=== PATIENT | male | born 1945 | race Caucasian/White ===

== ENCOUNTER 2017-07-29 06:00 | Day surgery (SDC) | payer MEDICARE ==
[2017-07-25 15:47] LABS: CREATININE 1.3 mg/dL (0.5-1.5); HEMATOCRIT 39.2 % (42-54); MEAN CORPUSCULAR HEMOGLOBIN 28.8 pg (27.0-33.0); MEAN CORPUSCULAR VOLUME 87.1 fL (79-99); NUCLEATED RED BLOOD CELLS 0.4 % (0.0-0.19); PLATELET COUNT (AUTO) 186 K/uL (130-400); POTASSIUM 4.1 mmol/L (3.5-5.1); RED BLOOD CELL COUNT(AUTO) 4.51 MIL/uL (4.50-6.20); RED CELL DISTRIBUTION WIDTH 14.7 % (11.0-15.5); WHITE BLOOD COUNT (AUTO) 16.4 K/uL (4.8-10.8)
[2017-07-25 15:49] VITALS: BP 160/83
[2017-07-25 16:33] LABS: BASOPHILS % (MANUAL) 1 % (0-2); EOSINOPHILS % (MANUAL) 5 % (1-6); LYMPHOCYTES % (MANUAL) 55 % (22-44); MAN.DIFF COMMENT-IMPRESSION MANUAL DIFFERENTIAL; MONOCYTES % (MANUAL) 3 % (2-9); REACTIVE LYMPHOCYTES 22 % (0-0); SEGMENTED NEUTROPHILS % 14 % (40-70)
[2017-07-29] VITALS (14 sets, daily range): BP systolic 111–153; BP diastolic 67–89
[~2017-07-29] VITALS: Ht 177.8 cm; Wt 93.3 kg
[~2017-07-29 06:00] MED LIST: METO50TA18 PO; SULF500T8 PO
[2017-07-29] MEDS ORDERED: LACTATED RINGERS 1000ML 1,000 ML IV ONE (06:18)
[2017-07-29] MEDS ORDERED: CEFAZOLIN 2GM / 50 ML 50 ML IV ONE (06:19)
[2017-07-29] MEDS ORDERED: LIDOCAINE PF 2% 5ML ABBOJECT ONE (06:51)
[2017-07-29] MEDS ORDERED: NEOSTIGMINE METHYLSULFATE 1MG/ML IV ONE (06:51)
[2017-07-29] MEDS ORDERED: FENTANYL CITRATE PF 50 MCG/1 ML 2ML VIAL ONE (06:51)
[2017-07-29] MEDS ORDERED: PROPOFOL 10 MG/ML 20ML VIAL IV ONE (06:51)
[2017-07-29] MEDS ORDERED: ONDANSETRON HCL 4 MG/2 ML VIAL ONE (06:51)
[2017-07-29] MEDS ORDERED: SUCCINYLCHOLINE 200MG/10ML SYR ONE (06:51)
[2017-07-29] MEDS ORDERED: MIDAZOLAM HCL 1 MG/ML 2ML VIAL ONE (06:51)
[2017-07-29] MEDS ORDERED: DEXAMETHASONE SOD PHOSPHATE 10MG/ML 1ML VIAL ONE (06:51)
[2017-07-29] MEDS ORDERED: GLYCOPYRROLATE 0.2 MG/ML 5 ML VIAL ONE (06:51)
[2017-07-29] MEDS ORDERED: BUPIVACAINE/PF 0.5% 30ML VIAL ONE (07:16)
[2017-07-29] MEDS ORDERED: LIDOCAINE HCL 1% 20 ML VIAL ONE (07:16)
[2017-07-29] MEDS ORDERED: OCTYL 2-CYANOACRYLATE 1 EACH TP ONE (07:17)
[2017-07-29] MEDS ORDERED: HEPARIN SODIUM 1000UNIT/ML 10ML VIAL ONE (07:17)
[2017-07-29] MEDS ORDERED: BACITRACIN 50,000 UNIT VIAL ONE (07:18)
[2017-07-29] MEDS ORDERED: TYL3 PO (09:26)
== END 2017-07-29 10:15 | disposition home or self-care (01) ==
LOC: DAH 06:00
PROVIDERS: ATTEND Surgery
DX: Z45.2 Encounter for adjustment and management of vascular access device (principal); C18.9 Malignant neoplasm of colon, unspecified; C18.0 Malignant neoplasm of cecum; I10 Essential (primary) hypertension; M19.90 Unspecified osteoarthritis, unspecified site; Z98.890 Other specified postprocedural states; Z90.49 Acquired absence of other specified parts of digestive tract; Z79.899 Other long term (current) drug therapy
CPT/HCPCS: 36415; 36561; 71010; 77001; 80048; 85025; 93005; C1788; J0330; J0690; J1100; J1644; J2001; J2250; J2405; J2704; J2710; J3010; J3490 ×2; J7120; 77002

== ENCOUNTER 2019-01-13 13:40 | Outpatient (CLI) | payer MEDICARE ==
[~2019-01-13 13:40] MED LIST changes: +TYL3 PO
[2019-01-13 17:33] VITALS: BP 164/104
== END 2019-02-16 15:35 ==
LOC: WHH 13:40
PROVIDERS: ATTEND Family Medicine
DX: S01.401A Unspecified open wound of right cheek and temporomandibular area, initial encounter (principal); I10 Essential (primary) hypertension; K29.70 Gastritis, unspecified, without bleeding; K63.89 Other specified diseases of intestine; K26.9 Duodenal ulcer, unspecified as acute or chronic, without hemorrhage or perforation; K57.90 Diverticulosis of intestine, part unspecified, without perforation or abscess without bleeding; K21.9 Gastro-esophageal reflux disease without esophagitis; E66.9 Obesity, unspecified; E78.5 Hyperlipidemia, unspecified; M45.9 Ankylosing spondylitis of unspecified sites in spine; N20.0 Calculus of kidney; N28.1 Cyst of kidney, acquired; M10.9 Gout, unspecified; M19.90 Unspecified osteoarthritis, unspecified site; Z85.828 Personal history of other malignant neoplasm of skin; Z85.038 Personal history of other malignant neoplasm of large intestine; Z79.899 Other long term (current) drug therapy; Z90.49 Acquired absence of other specified parts of digestive tract; Z85.89 Personal history of malignant neoplasm of other organs and systems; X58.XXXA Exposure to other specified factors, initial encounter; Y93.89 Activity, other specified; Y92.89 Other specified places as the place of occurrence of the external cause; Y99.8 Other external cause status
CPT/HCPCS: G0463

== ENCOUNTER 2019-02-24 07:49 | Day surgery (SDC) | payer MEDICARE ==
[2019-02-24] VITALS (8 sets, daily range): BP systolic 94–152; BP diastolic 51–80
[~2019-02-24] VITALS: Ht 177.8 cm; Wt 90.7 kg
[~2019-02-24 07:49] MED LIST changes: +SODIUM CHLORIDE 0.9% 1000ML 1,000 ML IV ONE
[2019-02-24] MEDS ORDERED: PROPOFOL 10 MG/ML 20ML VIAL IV ONE ×2 (09:44)
== END 2019-02-24 11:05 | disposition home or self-care (01) ==
LOC: DAH 07:49 → ENDO 07:49
PROVIDERS: ATTEND Internal Medicine
DX: Z08 Encounter for follow-up examination after completed treatment for malignant neoplasm (principal); D12.2 Benign neoplasm of ascending colon; K22.2 Esophageal obstruction; K21.0 Gastro-esophageal reflux disease with esophagitis; Z98.0 Intestinal bypass and anastomosis status; K29.50 Unspecified chronic gastritis without bleeding; Z85.038 Personal history of other malignant neoplasm of large intestine; I10 Essential (primary) hypertension; Z98.890 Other specified postprocedural states; Z79.899 Other long term (current) drug therapy; Z68.30 Body mass index [BMI] 30.0-30.9, adult; K63.5 Polyp of colon
CPT/HCPCS: 43239; 43249; 45380; 88305; 88342; A4606; J2704 ×2; J7030

== ENCOUNTER 2019-06-10 08:13 | Day surgery (SDC) | payer MEDICARE ==
[2019-06-10] VITALS (7 sets, daily range): BP systolic 110–151; BP diastolic 64–88
[~2019-06-10] VITALS: Ht 177.8 cm; Wt 94.3 kg
[2019-06-10] MEDS ORDERED: PROPOFOL 10 MG/ML 20ML VIAL IV ONE (11:13)
== END 2019-06-10 12:05 | disposition home or self-care (01) ==
LOC: DAH 08:13 → ENDO 08:13
PROVIDERS: ATTEND Internal Medicine Gastroenterology
DX: K21.9 Gastro-esophageal reflux disease without esophagitis (principal); K44.9 Diaphragmatic hernia without obstruction or gangrene; K29.50 Unspecified chronic gastritis without bleeding; K22.8 Other specified diseases of esophagus; I10 Essential (primary) hypertension; R13.10 Dysphagia, unspecified; Z98.890 Other specified postprocedural states; Z79.899 Other long term (current) drug therapy; Z85.038 Personal history of other malignant neoplasm of large intestine; Z90.49 Acquired absence of other specified parts of digestive tract; Z72.89 Other problems related to lifestyle; Z86.010 Personal history of colon polyps; Z85.828 Personal history of other malignant neoplasm of skin
CPT/HCPCS: 43239; 88305; A4215; A4221; A4222; A4223; A4606; A4663; J2704; J7030

== ENCOUNTER 2021-08-15 12:57 | Inpatient (IN) | payer MEDICARE ==
[~2021-08-15] VITALS: Ht 177.8 cm; Wt 93.5 kg
[~2021-08-15 12:57] MED LIST changes: -SODIUM CHLORIDE 0.9% 1000ML 1,000 ML IV ONE
[2021-08-15 13:18] LABS: APPEARANCE,URINE Clear (CLEAR); BILIRUBIN,URINE Negative (NEGATIVE); COLOR,URINE Yellow (YELLOW); GLUCOSE, URINE (UA) Negative (NEGATIVE); KETONES,URINE Negative (NEGATIVE); LEUKOCYTE ESTERASE ,URINE Negative (NEGATIVE); NITRATE,URINE Negative (NEGATIVE); OCCULT BLOOD,URINE Negative (NEGATIVE); PH,URINE 7.5 (5.0-8.0); PROTEIN,URINE Negative (NEGATIVE); UROBILINOGEN,URINE 0.2 mg/dL (0.2-1.0)
[2021-08-15 13:26] LABS: AMPHET/METH SCREEN,URINE NEGATIVE (NEGATIVE); BARBITURATE SCREEN, URINE NEGATIVE (NEGATIVE); BENZODIAZEPINES SCREEN,URINE NEGATIVE (NEGATIVE); CANNABINOID SCREEN,URINE NEGATIVE (NEGATIVE); COCAINE SCREEN,URINE NEGATIVE (NEGATIVE); OPIATE SCREEN,URINE NEGATIVE (NEGATIVE); PHENCYCLIDINE SCREEN,URINE NEGATIVE (NEGATIVE)
[2021-08-15 13:52] LABS: BASOPHILS % (AUTO) 0.4 % (0.0-5.0); EOSINOPHILS % (AUTO) 1.3 % (0.0-8.0); HEMATOCRIT 43.4 % (42-54); LYMPHOCYTES % (AUTO) 84.6 % (21.0-51.0); MEAN CORPUSCULAR HEMOGLOBIN 30.6 pg (27.0-33.0); MEAN CORPUSCULAR HGB CONC 33.2 g/dL (32.0-36.0); MEAN CORPUSCULAR VOLUME 92.1 fL (79-99); MONOCYTES % (AUTO) 4.8 % (3.0-13.0); NEUTROPHILS % (AUTO) 8.6 % (40.0-77.0); PLATELET COUNT (AUTO) 144 K/uL (130-400); RED BLOOD CELL COUNT(AUTO) 4.71 MIL/uL (4.50-6.20); RED CELL DISTRIBUTION WIDTH 13.9 % (11.0-15.5)
[2021-08-15 14:05] LABS: CREATININE 1.3 mg/dL (0.5-1.5); POTASSIUM 3.9 mmol/L (3.5-5.1)
[2021-08-15 14:07] LABS: WHITE BLOOD COUNT (AUTO) 54.2 K/uL (4.8-10.8)
[2021-08-15 14:10] LABS: ALBUMIN 3.7 g/dL (3.5-5.0); BILIRUBIN,TOTAL 0.6 mg/dL (0.2-1.0); TOTAL PROTEIN, SERUM 7.4 g/dL (6.0-8.3)
[2021-08-15 14:48] LABS: BLASTS, MANUAL % 2 (0-0); LYMPHOCYTES % (MANUAL) 78 % (22-44); MAN.DIFF COMMENT-IMPRESSION MANUAL DIFFERENTIAL; MONOCYTES % (MANUAL) 1 % (2-9); REACTIVE LYMPHOCYTES 5 % (0-0); SEGMENTED NEUTROPHILS % 14 % (40-70)
[2021-08-15] MEDS ORDERED: GADOTERATE MEGLUMINE 10 MMOL/20 ML VIAL IV ONE (15:04)
[2021-08-15] MEDS ORDERED: ASPIRIN 325MG TAB PO ONE (16:30)
[2021-08-15] MEDS ORDERED: ACETAMINOPHEN 325 MG TAB PO PRN ×2 (17:30)
[2021-08-15] MEDS ORDERED: ONDANSETRON 4MG INJ IV PRN (17:30)
[2021-08-15] MEDS: FAMOTIDINE 20MG VIAL IV SCH (21:18)
[2021-08-15] MEDS: ATORVASTATIN 40 MG TABLET PO SCH (21:18)
[2021-08-15] MEDS: METOPROLOL TARTRATE 25 MG TAB PO SCH (21:19)
[2021-08-16] MEDS ORDERED: ASPIRIN 81MG CHEW TAB ONE (07:26)
[2021-08-16] MEDS ORDERED: CLOPIDOGREL 75MG TAB ONE (07:26)
[2021-08-16] MEDS: FAMOTIDINE 20MG VIAL IV SCH (07:38)
[2021-08-16] MEDS: ASPIRIN 81MG CHEW TAB PO SCH (07:38)
[2021-08-16] MEDS: CLOPIDOGREL 75MG TAB PO SCH (07:38)
[2021-08-16] MEDS: METOPROLOL TARTRATE 25 MG TAB PO SCH ×2 (07:38→20:25)
[2021-08-16 09:00] VITALS: BP 168/99
[2021-08-16 11:32] VITALS: BP 150/67
[2021-08-16 16:01] VITALS: BP 168/97
[2021-08-16] MEDS: HYDRALAZINE 20MG/ML VIAL IV PRN (16:42)
[2021-08-16 20:14] VITALS: BP 135/84
[2021-08-16] MEDS: ATORVASTATIN 40 MG TABLET PO SCH (20:25)
[2021-08-16 23:24] VITALS: BP 159/88
[2021-08-17 04:09] VITALS: BP 163/88
[2021-08-17 04:22] LABS: HEMATOCRIT 41.5 % (42-54); MEAN CORPUSCULAR HEMOGLOBIN 30.3 pg (27.0-33.0); MEAN CORPUSCULAR HGB CONC 33.5 g/dL (32.0-36.0); MEAN CORPUSCULAR VOLUME 90.6 fL (79-99); PLATELET COUNT (AUTO) 149 K/uL (130-400); RED BLOOD CELL COUNT(AUTO) 4.58 MIL/uL (4.50-6.20)
[2021-08-17 04:27] LABS: CREATININE 1.4 mg/dL (0.5-1.5); POTASSIUM 3.7 mmol/L (3.5-5.1)
[2021-08-17 04:28] LABS: WHITE BLOOD COUNT (AUTO) 59.7 K/uL (4.8-10.8)
[2021-08-17 05:11] LABS: BASOPHILS % (MANUAL) 1 % (0-2); EOSINOPHILS % (MANUAL) 2 % (1-6); LYMPHOCYTES % (MANUAL) 86 % (22-44); MONOCYTES % (MANUAL) 1 % (2-9); SEGMENTED NEUTROPHILS % 10 % (40-70)
[2021-08-17 05:12] LABS: MAN.DIFF COMMENT-IMPRESSION MANUAL DIFFERENTIAL; PLATELET MORPHOLOGY COMMENT ADEQUATE
[2021-08-17] MEDS: ASPIRIN 81MG CHEW TAB PO SCH (08:05)
[2021-08-17] MEDS: METOPROLOL TARTRATE 25 MG TAB PO SCH ×2 (08:05→20:35)
[2021-08-17 08:06] VITALS: BP 168/88
[2021-08-17] MEDS: CLOPIDOGREL 75MG TAB PO SCH (08:06)
[2021-08-17 09:27] LABS: CHOLESTEROL 150 mg/dL (<200); HDL CHOLESTEROL 33 mg/dL (29-71); LDL DIRECT 96 mg/dL (0-99); TRIGLYCERIDES 94 mg/dL (30-200)
[2021-08-17] MEDS: FAMOTIDINE 20MG TAB PO SCH (10:29)
[2021-08-17 12:05] VITALS: BP 152/86
[2021-08-17 16:20] VITALS: BP 176/98
[2021-08-17] MEDS: HYDRALAZINE 20MG/ML VIAL IV PRN (17:53)
[2021-08-17 20:00] VITALS: BP 156/93
[2021-08-17] MEDS: ATORVASTATIN 40 MG TABLET PO SCH (20:34)
[2021-08-17] MEDS ORDERED: LISINOPRIL 10 MG TABLET PO SCH (21:00)
[2021-08-17 23:40] VITALS: BP 145/72
[2021-08-18 00:04] VITALS: BP 145/72
[2021-08-18 04:27] VITALS: BP 153/78
[2021-08-18 06:07] LABS: CHOLESTEROL 138 mg/dL (<200); HDL CHOLESTEROL 32 mg/dL (29-71); LDL DIRECT 88 mg/dL (0-99); TRIGLYCERIDES 89 mg/dL (30-200)
[2021-08-18 06:12] LABS: HEMOGLOBIN A1C 5.3 % (4.0-6.0)
[2021-08-18 08:20] VITALS: BP 140/89
[2021-08-18] MEDS ORDERED: LISINOPRIL 10 MG TABLET PO SCH (09:00)
[2021-08-18] MEDS: METOPROLOL TARTRATE 25 MG TAB PO SCH (09:03)
[2021-08-18] MEDS: ASPIRIN 81MG CHEW TAB PO SCH (09:03)
[2021-08-18] MEDS: FAMOTIDINE 20MG TAB PO SCH (09:03)
[2021-08-18] MEDS: CLOPIDOGREL 75MG TAB PO SCH (09:03)
[2021-08-18 12:00] VITALS: BP 129/75
[2021-08-18 16:59] VITALS: BP 152/85
[2021-08-18] MEDS ORDERED: HYDROCHLOROTHIAZIDE 25 MG TABLET PO ONE (18:30)
[2021-08-18 20:24] VITALS: BP 137/81
[2021-08-19] MEDS ORDERED: LISINOPRIL 10 MG TABLET PO SCH (09:00)
[2021-08-19] MEDS ORDERED: HYDROCHLOROTHIAZIDE 25 MG TABLET PO SCH (09:00)
== END 2021-08-18 20:40 | DRG 66 ==
LOC: EDH 12:57 → EDHIP 17:05 → 4DH 08-16 09:15
PROVIDERS: ADMIT Hospitalist; ATTEND Hospitalist
DX: I63.9 Cerebral infarction, unspecified (principal); D72.829 Elevated white blood cell count, unspecified; I10 Essential (primary) hypertension; R29.702 NIHSS score 2; Z20.822 Contact with and (suspected) exposure to COVID-19; T45.1X5A Adverse effect of antineoplastic and immunosuppressive drugs, initial encounter; Y92.89 Other specified places as the place of occurrence of the external cause; Z92.21 Personal history of antineoplastic chemotherapy; Z85.09 Personal history of malignant neoplasm of other digestive organs; Z82.49 Family history of ischemic heart disease and other diseases of the circulatory system; Z82.5 Family history of asthma and other chronic lower respiratory diseases; Z83.3 Family history of diabetes mellitus; Z82.3 Family history of stroke; Z82.0 Family history of epilepsy and other diseases of the nervous system
CPT/HCPCS: 36415; 70450; 70553; 80048; 80053; 80061; 80305; 81003; 83036; 84484; 85025; 85027; 87635; 92522; 92610; 93005; 93356; 93880; 96374; 97039; 99291; C8929; G0378; J0360; J3490

== ENCOUNTER → 2023-03-02 | Outpatient (CLI) | payer MEDICARE | END | disposition home or self-care (01) | LOC: SHCH 10:43 | PROVIDERS: ATTEND Internal Medicine Cardiovascular Disease | DX: I87.2 Venous insufficiency (chronic) (peripheral) (principal); R60.0 Localized edema | CPT/HCPCS: 93970 ==

== ENCOUNTER → 2023-05-01 | Outpatient (CLI) | payer MEDICARE ==
[2023-05-01 15:47] LABS: ALBUMIN 3.1 g/dL (3.5-5.0); BILIRUBIN,TOTAL 0.4 mg/dL (0.2-1.0); CREATININE 1.6 mg/dL (0.5-1.5); MAGNESIUM 1.9 mg/dL (1.80-2.40); POTASSIUM 4.7 mmol/L (3.5-5.1); TOTAL PROTEIN, SERUM 7.1 g/dL (6.0-8.3)
== END | disposition home or self-care (01) ==
LOC: LAB 12:49
PROVIDERS: ATTEND Internal Medicine Cardiovascular Disease
DX: I47.1 Supraventricular tachycardia (principal); I47.20 Ventricular tachycardia, unspecified; I10 Essential (primary) hypertension; Z95.0 Presence of cardiac pacemaker; Z79.899 Other long term (current) drug therapy
CPT/HCPCS: 36415; 80053; 83735; 84484

== ENCOUNTER → 2023-05-10 | Outpatient (CLI) | payer MEDICARE ==
[~2023-05-10] MED LIST changes: +REGADENOSON 0.4 MG/5 ML PF SYG IVP ONE
== END | disposition home or self-care (01) ==
LOC: SHCH 08:54
PROVIDERS: ATTEND Internal Medicine Cardiovascular Disease
DX: I11.9 Hypertensive heart disease without heart failure (principal); I44.1 Atrioventricular block, second degree; I47.20 Ventricular tachycardia, unspecified; I47.1 Supraventricular tachycardia; I25.9 Chronic ischemic heart disease, unspecified; E78.5 Hyperlipidemia, unspecified; Z95.0 Presence of cardiac pacemaker; Z79.899 Other long term (current) drug therapy
CPT/HCPCS: 78452; 96374; 93017; J2785; A9500 ×2

== ENCOUNTER 2023-08-13 16:03 | Emergency (ER) | payer MEDICARE ==
[~2023-08-13] VITALS: Ht 177.8 cm; Wt 77.1 kg
[~2023-08-13 16:03] MED LIST changes: +ACET325C6 PO; +ASPI-1197 PO; +ATOR40TA69 PO; +CLOP75TA32 PO; +DONE5TAB33 PO; +DRON400T7 PO; +FURO40TA5 PO; +LISI10TA24 PO; +MELA3CAP2 PO; +METO25 PO; -METO50TA18 PO; -REGADENOSON 0.4 MG/5 ML PF SYG IVP ONE; -SULF500T8 PO; +TAMS-1 PO; -TYL3 PO
[2023-08-13] MEDS ORDERED: ACETAMINOPHEN 500 MG TABLET PO ONE (18:30)
[2023-08-13 21:16] VITALS: BP 151/86; PULSE 70; RESP 16; O2SAT 99
== END 2023-08-13 21:22 | disposition home or self-care (01) ==
LOC: EDH 16:03
DX: S00.93XA Contusion of unspecified part of head, initial encounter (principal); S20.212A Contusion of left front wall of thorax, initial encounter; S50.02XA Contusion of left elbow, initial encounter; I10 Essential (primary) hypertension; Z95.1 Presence of aortocoronary bypass graft; Z79.899 Other long term (current) drug therapy; W01.0XXA Fall on same level from slipping, tripping and stumbling without subsequent striking against object, initial encounter; Y93.01 Activity, walking, marching and hiking; Y92.89 Other specified places as the place of occurrence of the external cause; Y99.8 Other external cause status
CPT/HCPCS: 29105; 70450; 71100; 73060; 73080

== ENCOUNTER → 2023-10-29 | Outpatient (CLI) | payer MEDICARE | END | disposition home or self-care (01) | LOC: SHCH 10:32 | PROVIDERS: ATTEND Internal Medicine Cardiovascular Disease | DX: I11.9 Hypertensive heart disease without heart failure (principal); E78.5 Hyperlipidemia, unspecified; I25.5 Ischemic cardiomyopathy | CPT/HCPCS: 93306 ==

== ENCOUNTER 2024-09-01 11:31 | Emergency (ER) | payer MEDICARE ==
[~2024-09-01] VITALS: Ht 177.8 cm; Wt 80.7 kg
[~2024-09-01 11:31] MED LIST changes: +ACEB200C18 PO; -ACET325C6 PO; +ALLO100T PO; +AMLO2.5T4 PO; -ATOR40TA69 PO; -CLOP75TA32 PO; -DRON400T7 PO; +FAMO20TA8 PO; +FINA5TAB41 PO; -LISI10TA24 PO; -MELA3CAP2 PO; +MELA5CAP PO; -METO25 PO; +METO25TA6 PO; +MIRT-22 PO; +SULF500T PO; -TAMS-1 PO
--- NOTE | 2024-09-01 12:19 | ERN ---
ED Note History of Present Illness Stated Complaint: FALL Chief Complaint: Mechanical Fall Time Seen by MD: 12:00 Dictation: 79-year-old male presents to the ED via EMS for evaluation post mechanical fall onset 0900. EMS reports patient is nonambulatory at baseline, but was found on the floor by skilled nursing staff. As per EMS patient is on any blood thinners, they deny LOC, vomiting or any other associated symptoms at this time. Allergies: Coded Allergies: No Known Drug Allergies (Unverified Allergy, Unknown, 04/07/14) Home Meds Reported Medications Famotidine (Famotidine) 20 Mg Tablet, 1 TAB PO BID for 30 Days, #60 TAB 0 Refills 07/11/24 Donepezil HCl (Donepezil HCl) 5 Mg Tablet, 1 TAB PO HS for 30 Days, #30 TAB 0 Refills 07/11/24 Sulfasalazine (Azulfidine) 500 Mg Tablet, 500 MG PO BID, TAB 07/11/24 Melatonin (Melatonin) 5 Mg Capsule, 1 CAP PO HS for sleep for 30 Days, #30 CAP 0 Refills 07/11/24 Amlodipine Besylate (Amlodipine Besylate) 2.5 Mg Tablet, 1 TAB PO DAILY for 30 Days, #30 TAB 0 Refills 07/11/24 Metoprolol Tartrate (Metoprolol Tartrate) 25 Mg Tablet, 12.5 MG PO DAILY, TAB 07/11/24 Allopurinol (Allopurinol) 100 Mg Tablet, 200 MG PO DAILY, TAB 07/11/24 Finasteride (Finasteride) 5 Mg Tablet, 1 TAB PO DAILY for 30 Days, #30 TAB 0 Refills 07/11/24 Acebutolol HCl (Acebutolol HCl) 200 Mg Capsule, 1 CAP PO DAILY for 30 Days, #30 CAP 0 Refills 07/11/24 Mirtazapine (Mirtazapine) 15 Mg Tablet, 1 TAB PO HS for 30 Days, #30 TAB 0 Refills 07/11/24 Furosemide (Furosemide) 40 Mg Tablet, 1 TAB PO DAILY for 30 Days, #30 TAB 0 Refills 07/11/24 Aspirin (Aspirin) 81 Mg Tab.chew, 81 MG PO AM, TAB.CHEW 05/23/23 Past Medical History Past Medical History: Dementia, High Cholesterol, Hypertension, Other Additional Past Medical Hx: GOUT, PARKINSONS Surgical History: Pacer/AICD Review of System Dictation Constitutional: Positive for fall, head injury Negative for fever,chills, and weight loss Eyes: Negative for injury, pain,redness, and discharge ENT: Negative for injury,pain or swelling Cardiovascular: Negative for chest pain, palpitations, and edema Respiratory: Negative for shortness of breath, cough, and wheezing, Abdomen/GI: Negative for abdominal pain, nausea, vomiting, diarrhea, and constipation Back: Negative for injury and pain : Negative for injury, bleeding and discharge MS/Extremity: Negative for injury and deformity Skin: Negative for rash, and discoloration Initial Vital Sign VS Vital Signs Date Time Temp Pulse Resp B/P (MAP) Pulse Ox O2 Delivery O2 Flow Rate FiO2 09/01/24 12:01 78 18 154/91 97 Room Air 0 09/01/24 13:23 21 Physical Exam Dictation General: awake, alert, NAD Head/Face: Normocephalic, hematoma to back of head Eyes: PERRL, EOMI, vision at baseline ENT: oral cavity clear, TMs clear, no signs of infection Neck: Trachea midline, supple, no nuchal rigidity Cardiovascular: RRR, normal S1/S2, No MRGs, no JVD Respiratory: CTAB, no respiratory distress, No rales or wheezes Abdomen: Soft, non-tender, non-distended, normal bowel sounds, no guarding or rebound. Skin: Warm, dry, normal turgor, no rash MS/Extremity: Pulses equal, no cyanosis, neurovascular intact, FROM Results (Laboratory/Radiology) X-RAY Comment: REASON: fall ORDERING PHYSICIAN: SAMANTHA KINCAID MD PROCEDURE: PELVIS - PELVIS 1-2VWS PELVIS 1-2VWS HISTORY: Status post fall COMPARISON: None TECHNIQUE: Frontal projection of the pelvis was obtained. FINDINGS: There is no acute displaced fracture or dislocation. Bilateral hip joint space narrowing are seen. Degenerative changes are seen. IMPRESSION: 1. Findings as described above. DICTATED BY: ELROY LO MD DATE: 09/01/24 1459 REASON: fall ORDERING PHYSICIAN: SAMANTHA KINCAID MD PROCEDURE: CXR1VW - CHEST 1VW CHEST 1VW HISTORY: Status post fall COMPARISON: 07/11/2024 FINDINGS: A frontal projection of the chest was obtained. Prominent interstitial markings are seen with possible superimposed infiltrates. The heart is borderline enlarged. All the lines and tubes are again seen in place. No evidence of aortic calcification is seen. IMPRESSION: 1. Prominent interstitial markings are seen with possible superimposed infiltrates. DICTATED BY: ELROY LO MD DATE: 09/01/[address] Scan Comment: REASON: fall ORDERING PHYSICIAN: SAMANTHA KINCAID MD PROCEDURE: HEAD WO - CT HEAD/BRAIN W/O CONTRAST CT HEAD/BRAIN W/O CONTRAST HISTORY: Weakness COMPARISON: None TECHNIQUE: Multiple sequential axial images of the head were obtained from the base of the skull through vertex. Patient was not given contrast through intravenous route. FINDINGS: The ventricles and extraventricular CSF spaces are nondilated for patient's age. There is no midline shift, mass effect or herniation. No acute intracranial bleed is seen. Visualized portion of the paranasal sinuses are grossly within normal limits. IMPRESSION: 1. No acute intracranial bleed is seen. 2. Atrophy with white matter changes. CT was performed with one or more following dose reduction techniques: automated exposure control, adjustment of the mA and kv according to patient's size, or use of a iterative reconstruction technique. DICTATED BY: ELROY LO MD DATE: 09/01/24 1425 REASON: fall ORDERING PHYSICIAN: SAMANTHA KINCAID MD PROCEDURE: C SPIN WO - CT CERVICAL SPINE W/O CONTRAST CT CERVICAL SPINE W/O CONTRAST HISTORY: Status post fall COMPARISON: None TECHNIQUE: Multiple sequential axial images of the cervical spine were obtained including post processing sagittal and coronal reconstruction images. Patient was not given contrast through intravenous route. FINDINGS: There are degenerative changes with cervical spine spondylosis. Disc space narrowing are seen at C3-4 through C6-7 levels. There are anterior longitudinal ligament calcifications. There is straightening of normal lordotic cervical curvature which may be related to muscle spasm or positioning. There is no loss of vertebral height. Evaluation for disc and cord pathology is limited with CT study. No evidence of fracture or dislocation is seen. There is atherosclerosis. Central canal narrowing is seen. IMPRESSION: 1. No fracture is seen. DJD with cervical spine spondylosis. CT was performed with one or more following dose reduction techniques: automated exposure control, adjustment of the mA and kv according to patient's size, or use of a iterative reconstruction technique. DICTATED BY: ELROY LO MD DATE: 09/01/24 1427 ED Course ED Course Orders Procedure Category Date Status Time Ct Cervical Spine W/O CT 09/01/24 Resulted Contrast 12:06 Ct Head/Brain W/O CT 09/01/24 Resulted Contrast 12:06 Chest 1vw RAD 09/01/24 Resulted 12:06 Pelvis 1-2vws RAD 09/01/24 Resulted 12:06 Vital Signs Date Time Temp Pulse Resp B/P (MAP) Pulse Ox O2 Delivery O2 Flow Rate FiO2 09/01/24 13:23 84 18 172/93 98 Room Air* 0 21 09/01/24 12:01 78 18 154/91 97 Room Air 0 Medical Decision Making MDM MDM: Differential diagnosis: Fall, head injury, contusion Previous outside records reviewed: Old ER visits. Need for hospitalization: Patient does not meet criteria for hospitalization. Need for emergency major/minor surgery: No Patient's prior external medical records from other ER visits were reviewed by me as indicated. Prior testing and results from previous visits were reviewed. Prior tests were taken into account with medical decision making and resource utilization, independent historian/historians were used to obtain complete medical history. I independently interpreted the test that were performed, results were reviewed by me and considered findings on radiology if ordered. Medical management and examination interpretation discussions were had by me with other qualified healthcare professionals as indicated for the patient's care. DX & DISP Disposition: Discharge Departure Impression: Primary Impression: Fall Additional Impression: Head injury Condition: Stable Referrals: AJ GA MD (PCP) I have reviewed, & agreed with my scribe's, documentation. (Entered by Sandy Saab, acting as a scribe for Dr. Kincaid) I personally scribed for SAMANTHA KINCAID MD ([email or web address]) on 09/01/24 at 15:32. Electronically submitted by Sandy Saab ([email or web address]). SAMANTHA KINCAID MD Sep 01, 2024 12:19
--- NOTE | 2024-09-01 13:20 | NUR ---
CT DELAY DUE TO PT IN EMS STRETCHER
--- NOTE | 2024-09-01 14:29 | HMCIMG ---
CT HEAD/BRAIN W/O CONTRAST HISTORY: Weakness COMPARISON: None TECHNIQUE: Multiple sequential axial images of the head were obtained from the base of the skull through vertex. Patient was not given contrast through intravenous route. FINDINGS: The ventricles and extraventricular CSF spaces are nondilated for patient's age. There is no midline shift, mass effect or herniation. No acute intracranial bleed is seen. Visualized portion of the paranasal sinuses are grossly within normal limits. IMPRESSION: 1. No acute intracranial bleed is seen. 2. Atrophy with white matter changes. CT was performed with one or more following dose reduction techniques: automated exposure control, adjustment of the mA and kv according to patient's size, or use of a iterative reconstruction technique.
--- NOTE | 2024-09-01 14:30 | HMCIMG ---
CT CERVICAL SPINE W/O CONTRAST HISTORY: Status post fall COMPARISON: None TECHNIQUE: Multiple sequential axial images of the cervical spine were obtained including post processing sagittal and coronal reconstruction images. Patient was not given contrast through intravenous route. FINDINGS: There are degenerative changes with cervical spine spondylosis. Disc space narrowing are seen at C3-4 through C6-7 levels. There are anterior longitudinal ligament calcifications. There is straightening of normal lordotic cervical curvature which may be related to muscle spasm or positioning. There is no loss of vertebral height. Evaluation for disc and cord pathology is limited with CT study. No evidence of fracture or dislocation is seen. There is atherosclerosis. Central canal narrowing is seen. IMPRESSION: 1. No fracture is seen. DJD with cervical spine spondylosis. CT was performed with one or more following dose reduction techniques: automated exposure control, adjustment of the mA and kv according to patient's size, or use of a iterative reconstruction technique.
--- NOTE | 2024-09-01 14:44 | NUR ---
PT WAS TRANSPORTED TO XRAY FOR IMAGING
--- NOTE | 2024-09-01 15:02 | HMCIMG ---
PELVIS 1-2VWS HISTORY: Status post fall COMPARISON: None TECHNIQUE: Frontal projection of the pelvis was obtained. FINDINGS: There is no acute displaced fracture or dislocation. Bilateral hip joint space narrowing are seen. Degenerative changes are seen. IMPRESSION: 1. Findings as described above.
--- NOTE | 2024-09-01 15:02 | HMCIMG ---
CHEST 1VW HISTORY: Status post fall COMPARISON: 07/11/2024 FINDINGS: A frontal projection of the chest was obtained. Prominent interstitial markings are seen with possible superimposed infiltrates. The heart is borderline enlarged. All the lines and tubes are again seen in place. No evidence of aortic calcification is seen. IMPRESSION: 1. Prominent interstitial markings are seen with possible superimposed infiltrates.
--- NOTE | 2024-09-01 15:31 | NUR ---
EMS WAS CALLED FOR RETURN TRIP AND PAPERWORK WAS FAXED.
--- NOTE | 2024-09-01 15:34 | NUR ---
REPORT WAS CALLED TO CATY ESCALANTE AT [facility].
--- NOTE | 2024-09-01 16:17 | NUR ---
[facility] BY [facility] PT.
[2024-09-01 16:22] VITALS: BP 161/93; PULSE 78; RESP 18; TEMP 97.9; O2SAT 97
== END 2024-09-01 16:24 ==
LOC: EDH 11:31
DX: S09.90XA Unspecified injury of head, initial encounter (principal); F02.80 Dementia in other diseases classified elsewhere, unspecified severity, without behavioral disturbance, psychotic disturbance, mood disturbance, and anxiety; I10 Essential (primary) hypertension; E78.00 Pure hypercholesterolemia, unspecified; Z79.899 Other long term (current) drug therapy; Z95.810 Presence of automatic (implantable) cardiac defibrillator; W18.39XA Other fall on same level, initial encounter; Y93.89 Activity, other specified; Y92.89 Other specified places as the place of occurrence of the external cause; Y99.8 Other external cause status
CPT/HCPCS: 70450; 71045; 72125; 72170; 99284

== ENCOUNTER → 2024-10-14 | Outpatient (CLI) | payer MEDICARE ==
[2024-10-14 16:19] LABS: BASOPHILS # (AUTO) 0.14 K/uL (0.00-0.20); BASOPHILS % (AUTO) 0.3 % (0.0-5.0); EOSINOPHILS % (AUTO) 1.6 % (0.0-8.0); HEMATOCRIT 38.7 % (42-54); IMMATURE GRANULOCYTE ABSOLUTE 0.08 K/uL (0-1); LYMPHOCYTES # (AUTO) 37.4 K/uL (1.0-4.8); LYMPHOCYTES % (AUTO) 86.5 % (21.0-51.0); MEAN CORPUSCULAR HEMOGLOBIN 30.4 pg (27.0-33.0); MEAN CORPUSCULAR HGB CONC 32.6 g/dL (32.0-36.0); MEAN CORPUSCULAR VOLUME 93.5 fL (79-99); MONOCYTES % (AUTO) 4.5 % (3.0-13.0); NEUTROPHILS # (AUTO) 2.9 K/uL (1.8-7.7); NEUTROPHILS % (AUTO) 6.9 % (40.0-77.0); PLATELET COUNT (AUTO) 79 K/uL (130-400); RED BLOOD CELL COUNT(AUTO) 4.14 MIL/uL (4.50-6.20); RED CELL DISTRIBUTION WIDTH 14.9 % (11.0-15.5)
[2024-10-14 16:33] LABS: WHITE BLOOD COUNT (AUTO) 43.2 K/uL (4.8-10.8)
[2024-10-14 16:59] LABS: BAND NEUTROPHILS % (MANUAL) 1 % (0-2); EOSINOPHILS % (MANUAL) 5 % (1-6); LYMPHOCYTES % (MANUAL) 82 % (22-44); MAN.DIFF COMMENT-IMPRESSION MANUAL DIFFERENTIAL; PLATELET MORPHOLOGY COMMENT DECREASED; SEGMENTED NEUTROPHILS % 12 % (40-70); TOTAL CELLS COUNTED 100
[2024-10-14 17:00] LABS: WBC MORPHOLOGY SMUDGE CELLS 1+
== END | disposition home or self-care (01) ==
LOC: LAB 15:37
PROVIDERS: ATTEND Internal Medicine Cardiovascular Disease
DX: I10 Essential (primary) hypertension (principal)
CPT/HCPCS: 36415; 85025